=== PATIENT | male | born 1985 | race Caucasian/White ===

== ENCOUNTER 2017-01-24 14:56 | Outpatient (CLI) | payer OTHER | END 2017-01-24 14:57 | disposition home or self-care (01) | DX: M79.671 Pain in right foot (principal) ==

== ENCOUNTER 2019-04-07 13:26 | Outpatient (CLI) | payer OTHER ==
--- NOTE | 2019-04-07 16:15 | XRAY Report ---
Reason: SOMATIC DYSFUNCTION,LUMBAR,MUSCLE SPASM,BACK Procedure Date: 04/07/2019 Accession Number: [id number] / [id number] Procedure: XR - Lumbar Spine 2 View CPT Code: FULL RESULT: EXAM: LUMBOSACRAL SPINE RADIOGRAPHY. EXAM DATE: 04/07/2019 02:51 PM. CLINICAL HISTORY: Somatic dysfunction, lumbar, muscle spasm, back. COMPARISONS: None. TECHNIQUE: 3 views. FINDINGS: Alignment: Normal. No spondylolisthesis or scoliosis. Bones: Five [id number] lumbar vertebral bodies are present. No fractures or bone lesions. Disks: Normal. Disk heights are maintained. Facets: No degenerative changes. Sacroiliac Joints: Unremarkable. Soft Tissues: Normal. The visualized bowel gas pattern is normal. IMPRESSION: Normal lumbar spine radiography. [facility]
--- NOTE | 2019-04-08 10:44 | MRI Report ---
Reason: SOMATIC DYSFUNCTION,LUMBAR,MUSCLE SPASM,BACK Procedure Date: 04/07/2019 Accession Number: [id number] / [id number] Procedure: MRI - Lumbar Spine W/O CPT Code: FULL RESULT: EXAM: MRI LUMBAR SPINE WITHOUT CONTRAST EXAM DATE: 04/07/2019 02:34 PM. CLINICAL HISTORY: Somatic dysfunction, lumbar, muscle spasm,back. COMPARISON: None. TECHNIQUE: Multiplanar, multisequence T1-weighted and fluid-sensitive sequences of the lumbar spine from T12 to S1 without contrast. Other: None. FINDINGS: There is a mild decrease in the disk space height with desiccation at L5-S1. The conus terminates at the mid L1 vertebral body level and is normal. The abdominal aorta is of normal caliber. There is no significant atrophy of the paraspinal musculature or the psoas musculature. The kidneys are without evidence of hydronephrosis. T12-L1: There is no significant disk bulge, central or foraminal stenosis. The facets are normal. L1-L2: There is no significant disk bulge, central or foraminal stenosis. The facets are normal. L2-L3: There is no significant disk bulge, central or foraminal stenosis. The facets are normal. L3-L4: There is no significant disk bulge, central or foraminal stenosis. The facets are normal. L4-L5: There is no significant disk bulge, central or foraminal stenosis. The facets are normal. L5-S1: There is a small disk bulge with annular tear abutting the sac producing a minimal central canal stenosis. The facets are normal. There is mild to moderate right neuroforaminal narrowing. IMPRESSION: 1. There is a small disk bulge with annular tear at L5-S1 producing a minimal central canal stenosis. Comment: The following findings are so common in adults without low back pain that while we report their presence, they must be interpreted with caution and in the context of the clinical situation. (Reference Glennvik et al, Spine 2001) Prevalence of findings in patients without low back pain: Disk degeneration (any evidence): 92% Disk desiccation/T2 signal loss: 83% Disk height loss: 56% Disk bulge: 64% Disk protrusion: 32% Annular tear/high intensity zone: 38% [facility]
== END 2019-04-07 13:27 | disposition home or self-care (01) ==
LOC: DI 13:26
PROVIDERS: ATTEND Family Medicine
DX: M51.37 Other intervertebral disc degeneration, lumbosacral region (principal)
CPT/HCPCS: 72100; 72148